=== PATIENT | female | born 2000 | race Caucasian/White ===

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

== ENCOUNTER 2022-01-26 08:34 | Emergency (ER) | payer OTHER ==
[~2022-01-26] VITALS: Ht 160 cm; Wt 98.6 kg
[2022-01-26 08:41] VITALS: BP 110/74
[2022-01-26 08:46] VITALS: BP 103/68
[2022-01-26] MEDS ORDERED: WELLBUTRIN150 M1 PO (08:49)
[2022-01-26] MEDS ORDERED: ABILIFY10 M1 (08:49)
[2022-01-26] MEDS ORDERED: ZPAK PO (09:34)
[2022-01-26 09:37] VITALS: BP 103/68
== END 2022-01-26 09:58 | disposition home or self-care (01) ==
LOC: ED 08:34
DX: J02.9 Acute pharyngitis, unspecified (principal); Z20.822 Contact with and (suspected) exposure to COVID-19

== ENCOUNTER 2022-02-05 14:06 | Emergency (ER) | payer OTHER ==
[~2022-02-05] VITALS: Ht 160 cm; Wt 101.0 kg
[~2022-02-05 14:06] MED LIST changes: +ABILIFY10 M1; +WELLBUTRIN150 M1 PO; +ZPAK PO
[2022-02-05 14:38] VITALS: BP 116/81
[2022-02-05 14:45] VITALS: BP 114/74
[2022-02-05 15:00] VITALS: BP 110/79
[2022-02-05 15:15] VITALS: BP 119/77
[2022-02-05 15:30] VITALS: BP 129/73
[2022-02-05 16:09] VITALS: BP 129/73
== END 2022-02-05 16:13 | disposition home or self-care (01) ==
LOC: ED 14:06
DX: M25.522 Pain in left elbow (principal); W18.39XA Other fall on same level, initial encounter; Y93.51 Activity, roller skating (inline) and skateboarding; Y92.331 Roller skating rink as the place of occurrence of the external cause